=== PATIENT | male | born 1950 | race Two or more races ===

== ENCOUNTER 2018-03-15 16:47 | Emergency (ER) | payer MEDICARE, OTHER ==
[~2018-03-15] VITALS: Ht 185.4 cm; Wt 81.6 kg
[~2018-03-15 16:47] MED LIST: ACET-868 PO; AMOX-427 PO; ASCO500T9 PO; Benztropine Mesylate PO; Cadexomer Iodine TP; DIVA250T6 PO; DOCU-270 PO; ESCI10TA PO; FAMO20TA8 PO; HYDR-3974 PO; LABE100T PO; LACT1CAP72 PO; MULT1TAB11 PO; POLY17PO4 PO; RISP1TAB7 PO; SENN-167 PO; SITA100T PO; TAMS0.4C34 PO; ZINC220C8 PO; ZOLP5TAB8 PO
--- NOTE | 2018-03-15 17:00 | NUR ---
BB PRIVATE EMS FROM [facility] FOR WEAKNESS AND DIARRHEA. SEEN BY MD FOR EVAL. VSS. SAFETY AND COMFORT MEASURES PROVIDED. WILL MONITOR.
[2018-03-15] MEDS ORDERED: IV NS 0.9% 1,000 ML BAG IV ONE ×2 (17:30→19:00)
--- NOTE | 2018-03-15 17:40 | NUR ---
IV ACCESS STARTED. BLOOD DRAWN FOR LABS. MEDICATED ORDERED.
[2018-03-15 17:41] LABS: BASOPHILS # (AUTO) 0.1 /CMM (0.0-0.2); BASOPHILS % (AUTO) 0.6 % (0.0-2.0); EOSINOPHILS # (AUTO) 0.2 /CMM (0.0-0.7); EOSINOPHILS % (AUTO) 2.1 % (0.0-6.0); HEMATOCRIT 43 % (39-51); LYMPHOCYTES % (AUTO) 27.9 % (20.0-44.0); MEAN CORPUSCULAR HEMOGLOBIN 24 PG (26.0-33.0); MEAN CORPUSCULAR HGB CONC 32 g/dl (31.0-36.0); MEAN CORPUSCULAR VOLUME 74 fL (80-96); MONOCYTES # (AUTO) 0.7 /CMM (0.1-1.30); MONOCYTES % (AUTO) 6.8 % (2.0-12.0); NEUTROPHILS # (AUTO) 6.6 /CMM (1.8-8.9); NEUTROPHILS % (AUTO) 62.6 % (43.0-81.0); PLATELET COUNT (AUTO) 176 /CMM (150-450); RDW COEFFICIENT OF VARIATION 14.2 (11.5-15.0); RED BLOOD CELL COUNT(AUTO) 5.82 MIL/uL (4.5-6.0); WHITE BLOOD COUNT (AUTO) 10.6 K/uL (4.3-11.0)
[2018-03-15 17:56] LABS: CALCIUM, SERUM 10.1 mg/dL (8.5-10.1); CREATININE 1.6 mg/dL (0.6-1.3); POTASSIUM 4.4 mmol/L (3.5-5.1)
[2018-03-15 18:01] LABS: ALBUMIN 3.7 g/dL (3.4-5.0); BILIRUBIN,DIRECT 0.2 mg/dL (0.0-0.2); BILIRUBIN,TOTAL 0.7 mg/dL (0.2-1.0); TOTAL PROTEIN, SERUM 8.7 g/dL (6.4-8.2)
--- NOTE | 2018-03-15 19:23 | NUR ---
RECEIVED REPORT FROM GERONIMO HERNANDEZ FOR SELENA.
--- NOTE | 2018-03-15 21:13 | NUR ---
Patient discharged to home in stable condition. Written and verbal after care instructions given. Patient verbalizes understanding of instruction.IV removed. Catheter intact and site benign. Pressure and 4x4 applied to site. No bleeding noted. [facility] BEDSIDE FOR PT TRANSPORT. REPORT GIVEN TO TRANSPORT CREW. VSS UPON DISCHARGE. PT TRANSFERED ONTO [facility]BULST. [facility].
[2018-03-15 21:14] VITALS: BP 128/73
== END 2018-03-15 21:15 | disposition home or self-care (01) ==
LOC: ER 16:49
DX: E86.0 Dehydration (principal); R19.7 Diarrhea, unspecified; R79.89 Other specified abnormal findings of blood chemistry; R74.8 Abnormal levels of other serum enzymes; G47.33 Obstructive sleep apnea (adult) (pediatric); E78.5 Hyperlipidemia, unspecified; I10 Essential (primary) hypertension; J44.9 Chronic obstructive pulmonary disease, unspecified; N40.0 Benign prostatic hyperplasia without lower urinary tract symptoms; R71.8 Other abnormality of red blood cells
CPT/HCPCS: 36415; 80048-TC; 80076-TC; 85025-TC; 87045-TC; 89055; A4606; J7030; Z7610